=== PATIENT | female | born 1955 | race Caucasian/White ===

== ENCOUNTER 2019-12-17 15:49 | Emergency (ER) | payer MEDICAID, SELFPAY ==
[2019-12-17] MEDS ORDERED: ATROPINE SULF 1MG/10ML SYRINGE (J0461) ONE (15:50)
[2019-12-17] MEDS ORDERED: SUCCINYLCHOLINE 100 MG/5 ML SYRINGE (J0330) ONE (15:50)
[2019-12-17] MEDS ORDERED: ETOMIDATE INJ 20MG/10ML VIAL ONE (15:50)
[2019-12-17] MEDS ORDERED: DOPamine 400 MG/500 ML BAG IN D5W (800MCG/ML) (J1265) ONE (15:50)
[2019-12-17] MEDS ORDERED: HEPARIN DRIP 25,000 UNITS in IV 1 EA IV SCH (16:06)
[2019-12-17] MEDS ORDERED: CLOPIDOGREL 300 MG TAB (PLAVIX) PO STA (16:08)
[2019-12-17] MEDS ORDERED: ONDANSETRON 4MG/2ML VIAL IV ONE ×2 (16:15→17:15)
[2019-12-17] MEDS ORDERED: NS 500 ML IV ONE (16:15)
[2019-12-17] MEDS ORDERED: TENECTEPLASE 50 MG KIT (TNKase) (J3101 PER 1MG) IV ONE (16:15)
[2019-12-17] MEDS ORDERED: HEPARIN SOD (PORCINE) 5000UNITS/ML 1ML VIAL/SYRINGE IV ONE (16:15)
[2019-12-17] MEDS ORDERED: MORPHINE 4 MG/ML 1ML VIAL/SYRINGE (J2270) IV PRN (16:15)
[2019-12-17 16:25] LABS: BASO % 0.3 % (0.0-1.0); EOS % 0.1 % (0.0-3.0); HEMOGLOBIN 16.4 g/dl (12.0-15.5); LYMPH # 1.7 10^3/uL (1.5-5.0); LYMPH % 14.1 % (24.0-44.0); MEAN CORPUSCULAR HEMOGLOBIN 30.1 pg (27.0-33.0); MEAN CORPUSCULAR HGB CONC 32.2 g/dl (32.0-36.5); MEAN CORPUSCULAR VOLUME 93.8 fl (80.0-96.0); MONO # 0.7 10^3/uL (0.0-0.8); NEUTROPHILS # 9.3 10^3/uL (1.5-8.5); NEUTROPHILS % 78.2 % (36.0-66.0); PLATELET COUNT, AUTOMATED 227 10^3/uL (150-450); RED BLOOD COUNT 5.44 10^6/uL (4.00-5.40); WHITE BLOOD COUNT 11.9 10^3/uL (4.0-10.0)
[2019-12-17] MEDS ORDERED: fentaNYL 100 MCG/2 ML INJECTION (J3010) IV PRN (16:30)
[2019-12-17 16:42] LABS: INR 0.99; PARTIAL THROMBOPLASTIN TIME 22.1 SECONDS (25.0-38.4); PROTHROMBIN TIME 13.3 SECONDS (11.8-14.0)
[2019-12-17 16:54] LABS: ALBUMIN 3.5 GM/DL (3.2-5.2); BILIRUBIN,DIRECT 0.2 MG/DL (0.0-0.2); BILIRUBIN,TOTAL 0.5 MG/DL (0.2-1.0); CALCIUM LEVEL 9.5 MG/DL (8.8-10.2); CK-MB VALUE MASS 2.6 NG/ML (<3.6); CREATININE FOR GFR 1.83 MG/DL (0.55-1.30); GLOMERULAR FILTRATION RATE 29.8 (>45); MB/CK RELATIVE INDEX 1.93 (< OR =4); POTASSIUM SERUM 4.4 MEQ/L (3.5-5.1); TOTAL PROTEIN 6.8 GM/DL (6.4-8.2); TROPONIN I 0.24 NG/ML (< 0.10)
[2019-12-17 16:57] VITALS: BP 70/51
[2019-12-17] MEDS ORDERED: ATROPINE SULF 1MG/10ML SYRINGE (J0461) IV STA (17:04)
[2019-12-17] MEDS ORDERED: MIDAZOLAM 5MG/ML 1ML VIAL (J2250 PER 1MG) As Ordered ONE ×2 (17:11→17:12)
[2019-12-17] MEDS ORDERED: DOPamine HCL 400 MG in IV 1 EA IV SCH (17:15)
[2019-12-17] MEDS ORDERED: ETOMIDATE INJ 20MG/10ML VIAL IV STA (17:23)
[2019-12-17] MEDS ORDERED: SUCCINYLCHOLINE INJ 200 MG/10 ML VIAL (J0330) IV STA (17:24)
[2019-12-17] MEDS ORDERED: MIDAZOLAM HCL 50 MG in D5W 40 ML IV SCH (17:30)
[2019-12-17] MEDS ORDERED: VECURONIUM BROMIDE 10MG VIAL IV STA ×2 (17:31→17:55)
[2019-12-17] MEDS ORDERED: VECURONIUM BROMIDE 10MG VIAL As Ordered ONE (17:32)
--- NOTE | 2019-12-29 16:16 | ECGEPIP ---
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
--- NOTE | 2020-01-01 07:45 | ECGEPIP ---
[facility] - ED Test Date: 2019-12-17 Pat Name: LUCIEN NAM Department: Room: - Gender: Female [employer] Feeder: tb : 1955 Requested By: Nancy Ortega Order Number: [id number] Reading MD: Todd New Measurements Intervals [place] Rate: 42 P: [place]: 0 QRS: 88 QRSD: 129 T: 107 QT: 528 QTc: 445 Interpretive Statements JUNCTIONAL BRADYCARDIA WITH FIRST DEGREE AV BLOCK INTRAVENTRICULAR CONDUCTION DELAY ACUTE INFEROSEPTAL INFARCT SEE SCANNED DOWNTIME REPORT
--- NOTE | 2020-01-11 11:42 | ECGEPIP ---
SINUS RHYTHM ST ELEVATION, PROBABLY EARLY REPOLARIZATION ST DEPRESSION, CONSIDER SUBENDOCARDIAL INJURY ABNORMAL ECG INTERPRETATION BASED ON A DEFAULT AGE OF 42 YEARS ACUTE INFERIOR SEPTAL INFARCT SEE SCANNED DOWNTIME REPORT MTDD
--- NOTE | 2020-01-17 08:11 | REP ---
PORTABLE CHEST X-RAY CLINICAL: Chest pain. FINDINGS: Mediastinum and cardiac silhouette normal. Lung chaves demonstrate chronic appearing interstitial changes. No focal consolidation, effusion, or pneumothorax. Skeletal structures intact. IMPRESSION: Chronic appearing changes. No focal consolidation. MTDD
--- NOTE | 2020-01-17 08:11 | REP ---
PORTABLE CHEST X-RAY CLINICAL: Status post intubation. COMPARISON: 12/17/2019 at 0402 pm. FINDINGS: Endotracheal tube 2.5 cm above the evelia. Mediastinum and cardiac silhouette stable. Lung chaves demonstrate diffuse chronic interstitial changes. Subtle superimposed right basilar atelectasis cannot be excluded. No focal consolidation. No definite effusion. No pneumothorax. Skeletal structures are intact. IMPRESSION: Endotracheal tube in satisfactory position. Diffuse chronic interstitial changes. Subtle superimposed right basilar atelectasis cannot be excluded. MTDD
== END 2019-12-17 17:51 | disposition short-term general hospital (02) ==
LOC: M ED 15:49 → EDBD 15:49 → M ED 17:51
DX: I21.4 Non-ST elevation (NSTEMI) myocardial infarction (principal); F17.210 Nicotine dependence, cigarettes, uncomplicated
CPT/HCPCS: 71045; 80047; 80048; 80076; 82550; 82553; 83690; 83880; 85025; 85610; 85730; 93005; 93041; 94760; 96374; 96375; 96376; 99291; J0330; J0461; J1265; J1644; J2250; J2405; J3010; J3101; U0002

== ENCOUNTER → 2020-06-01 | Outpatient (CLI) | payer OTHER ==
[2020-06-01 14:13] LABS: ALBUMIN 3.6 GM/DL (3.2-5.2); BILIRUBIN,TOTAL 0.6 MG/DL (0.2-1.0); CREATININE FOR GFR 1.19 MG/DL (0.55-1.30); GLOMERULAR FILTRATION RATE 48.9 (>45); POTASSIUM SERUM 4.2 MEQ/L (3.5-5.1)
== END ==
LOC: M LAB 12:59
DX: I10 Essential (primary) hypertension (principal)

== ENCOUNTER → 2020-08-29 | Outpatient (CLI) | payer OTHER ==
[2020-08-29 16:23] LABS: CREATININE FOR GFR 1.27 MG/DL (0.55-1.30); GLOMERULAR FILTRATION RATE 45.4 (>45); POTASSIUM SERUM 4.2 MEQ/L (3.5-5.1)
== END ==
LOC: M LAB 14:35
PROVIDERS: ATTEND Nurse Practitioner Family
DX: I25.10 Atherosclerotic heart disease of native coronary artery without angina pectoris (principal)

== ENCOUNTER → 2022-01-29 | Outpatient (CLI) | payer OTHER | LOC: M WUC 14:45 | PROVIDERS: ATTEND Internal Medicine | DX: M54.59 Other low back pain (principal) ==

== ENCOUNTER → 2023-06-12 | Outpatient (REF) | payer OTHER | LOC: M LAB REF 16:04 | PROVIDERS: ATTEND Internal Medicine | DX: I13.0 Hypertensive heart and chronic kidney disease with heart failure and stage 1 through stage 4 chronic kidney disease, or unspecified chronic kidney disease (principal); N18.9 Chronic kidney disease, unspecified; I50.9 Heart failure, unspecified ==

== ENCOUNTER → 2023-06-12 | Outpatient (CLI) | payer MEDICARE, MEDICAID | LOC: M RAD 15:15 | PROVIDERS: ATTEND Internal Medicine | DX: M79.605 Pain in left leg (principal); R22.42 Localized swelling, mass and lump, left lower limb ==

== ENCOUNTER → 2023-10-21 | Outpatient (CLI) | payer MEDICARE, MEDICAID | LOC: M WHC 14:29 | PROVIDERS: ATTEND Internal Medicine | DX: M81.0 Age-related osteoporosis without current pathological fracture (principal); Z12.31 Encounter for screening mammogram for malignant neoplasm of breast ==

== ENCOUNTER → 2023-11-17 | Outpatient (CLI) | payer MEDICARE, MEDICAID | LOC: M WHC 14:00 | PROVIDERS: ATTEND Internal Medicine | DX: R92.8 Other abnormal and inconclusive findings on diagnostic imaging of breast (principal) | CPT/HCPCS: 77065; G0279 ==